=== PATIENT | male | born 1950 | race Two or more races ===

== ENCOUNTER 2018-10-19 13:10 | Emergency (ER) | payer OTHER ==
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
[2018-10-19 13:31] VITALS: BP 160/87; PULSE 64; TEMP 98.2; BMI 27.4
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
== END 2018-10-19 14:06 | disposition home or self-care (01) ==
LOC: FER 13:10
DX: S43.101A Unspecified dislocation of right acromioclavicular joint, initial encounter (principal); Y93.89 Activity, other specified; Y92.89 Other specified places as the place of occurrence of the external cause; I10 Essential (primary) hypertension; E78.00 Pure hypercholesterolemia, unspecified; E78.5 Hyperlipidemia, unspecified; V43.52XA Car driver injured in collision with other type car in traffic accident, initial encounter; Y92.410 Unspecified street and highway as the place of occurrence of the external cause
CPT/HCPCS: 73000-TC-RT-FY; 73030-TC-RT-FY; 99282-25

== ENCOUNTER 2020-03-14 10:29 | Emergency (ER) | payer OTHER | END 2020-03-14 12:56 | disposition home or self-care (01) | LOC: JVIRT 10:29 | DX: Z11.59 Encounter for screening for other viral diseases (principal) | CPT/HCPCS: C9803; G2012-GT; U0003 ==

== ENCOUNTER 2023-10-26 17:35 | Emergency (ER) | payer OTHER ==
[2023-10-26 17:43] VITALS: BP 136/72; PULSE 99; RESP 16; TEMP 98.5; BMI 31.8
[2023-10-26 19:02] LABS: BASO % 0.9 % (0-2.0); EOS % 3.9 % (0-4.5); HEMATOCRIT 40.8 % (35.4-49); HEMOGLOBIN 13.9 GM/dL (11.7-16.9); LYMPH % 22.5 % (8-40); MCH 28.8 pg (25.7-33.7); MEAN CELL VOLUME 84.8 fl (80-96); MEAN PLT VOLUME 7.3 fl (7.5-11.1); MONO % 7.3 % (3.8-10.2); NEUT % 65.4 % (42.8-82.8); PLATELET COUNT 345 10^3/uL (134-434); RBC 4.82 M/mm3 (4.00-5.60); RDW 13.5 % (11.9-15.9)
[2023-10-26 19:22] LABS: POTASSIUM 3.6 mmol/L (3.5-5.1)
[2023-10-26 19:24] LABS: CALCIUM 9.2 mg/dL (8.5-10.1)
[2023-10-26 19:25] LABS: BLOOD UREA NITROGEN 18.5 mg/dL (7-18)
[2023-10-26 19:28] LABS: CREATININE 1.3 mg/dL (0.55-1.3)
[2023-10-26 19:29] LABS: BILIRUBIN,TOTAL 0.3 mg/dL (0.2-1); TOT PROT 7.5 g/dl (6.4-8.2)
[2023-10-26] MEDS ORDERED: METHOCARBAMOL 500 MG TABLET ONE (20:23)
[2023-10-26] MEDS ORDERED: LIDOCAINE 5% TOPICAL PATCH ONE (20:24)
[2023-10-26] MEDS ORDERED: ACETAMINOPHEN INJECTION 100 ML IVPB ONE (20:24)
[2023-10-26] MEDS ORDERED: METOCLOPRAMIDE HCL INJECTION 10 MG/2 ML VIAL ONE (20:24)
[2023-10-26] MEDS: METHOCARBAMOL 500 MG TABLET PO ONE (20:35)
[2023-10-26] MEDS: SODIUM CHLORIDE 0.9% 500 ML INFUS.BAG IV ONE (20:35)
[2023-10-26] MEDS: LIDOCAINE 4% PATCH TP ONE (20:35)
[2023-10-26] MEDS: ACETAMINOPHEN 1000 MG/100 ML BAG IVPB ONE (20:35)
[2023-10-26] MEDS: METOCLOPRAMIDE HCL INJECTION 10 MG/2 ML VIAL IVPB ONE (20:51)
[2023-10-26] MEDS ORDERED: LIDOCAINE PATCH REMOVAL MC SCH (22:00)
== END 2023-10-26 21:35 | disposition home or self-care (01) ==
LOC: JER 17:35
PROC: 3E033NZ Introduction of Analgesics, Hypnotics, Sedatives into Peripheral Vein, Percutaneous Approach (ICD-10-PCS; principal; 2023-10-26)
PROC: 3E033GC Introduction of Other Therapeutic Substance into Peripheral Vein, Percutaneous Approach (ICD-10-PCS; 2023-10-26)
DX: R51.9 Headache, unspecified (principal); M54.2 Cervicalgia; J01.90 Acute sinusitis, unspecified; H53.8 Other visual disturbances
CPT/HCPCS: 36415; 70450-TC; 80053; 85025; 93005; 93010; 99284-25; J0131